=== PATIENT | female | born 1990 | race Caucasian/White ===

== ENCOUNTER 2024-05-14 15:27 | Emergency (ER) | payer OTHER ==
[~2024-05-14] VITALS: Ht 162.6 cm; Wt 100.0 kg
[2024-05-14 15:33] VITALS: TEMP 98.7; O2SAT 99
[2024-05-14 17:34] VITALS: BP 126/74; PULSE 76; RESP 16; O2SAT 99
== END 2024-05-14 17:35 ==
LOC: ER 15:27
DX: M25.511 Pain in right shoulder (principal)
CPT/HCPCS: 73030; 99283